=== PATIENT | female | born 1990 | race Hispanic/Latino ===

== ENCOUNTER 2018-04-24 19:08 | Emergency (ER) | payer BC ==
[~2018-04-24] VITALS: Ht 172.7 cm; Wt 72.6 kg
--- OUTSIDE RECORDS SUMMARY | 2018-04-24 19:11 | XMS REPORT | Encounter Summary ---
Author Organization Unknown Address [address] [place] [address] Phone [phone] Reason for Visit Medical Complaint Instructions 1. Viral upper respiratory tract infection rapid flu (A+B) rapid strep group A, throat Discussion Note plenty of fluids, steamed showers, honey w/warm tea, rest. RTC or f/u with PCP if symptoms worsen or do not improve w/symptomatic treatment. watch for signs and symptoms of secondary bacterial infection such as fever returning, shortness of breath, ear pain, or sinus pain and f/u as needed. Patient educational handouts: No information available. Plan of Care Reminders Provider Appointments None recorded. Lab Rapid Flu (A+B) 06/16/2017 [facility] Rapid Strep Group a, Throat 06/16/2017 [facility] Referral None recorded. Procedures None recorded. Surgeries None recorded. Imaging None recorded. Medications Name Start Date esomeprazole magnesium 40 mg capsule,delayed release Plus DHA 27 mg iron-1 mg-312 mg-250 mg oral pack Vitamin D2 50,000 unit capsule Medications Administered None recorded. Vitals Height Weight BMI Blood Pressure 5 ft 8 in 155 lbs 23.6 kg/m2 102/62 mm[Hg] Lab Results Date Name Specimen Result Interpretation Description Value Range Status Address Rapid Strep Group a, Throat Result negative [facility]: [address] [place] [address] Swab Location Left and Right tonsillar pillars [facility]: [address] [place] [address] Rapid Flu (A+B) Influenza a negative [facility]: [address] [place] [address] Influenza B negative [facility]: [address] [place] [address] Allergies Code Code System Name Reaction Severity Status Onset NKDA Problems None recorded. Procedures None recorded. Vaccine List Vaccine Type Tdap 06/15/2013 Social History Smoking Status Never Smoker Past Encounters 06/16/2017 Viral Upper Respiratory Tract Infection Mojgan Gallagher, EDUARDO, S: [address] [place] [address], Ph. History of Present Illness [id number] Reported By: Patient HPI: Location: head/sinuses, throat. Quality: productive cough, sore throat, nasal/sinus congestion, dry cough. Duration: 2days. Severity: moderate. Onset/Timing: sudden. Context: non-smoker, sick contact; no asthma. Modifying factors: OTC medication. Associated Symptoms: no shortness of breath, no wheezing, yellow sputum Review of Systems Basic Reported By: Patient Constitutional: Constitutional: no fever Oeag-Kemo-Wyiuz-Throat: Ears: ; ears itchy. Nose: nose/sinus problems. Mouth/Throat: sore throat Cardiovascular: Cardiovascular: no chest pain, no shortness of breath, no known heart murmur Respiratory: Respiratory: no wheezing, no shortness of breath, cough Physical Exam Adult Basic Reported By: Patient Constitutional: General Appearance: healthy-appearing, well-nourished, well-developed. Level of Distress: NAD. Ambulation: ambulating normally Psychiatric: Mental Status: active and alert Odr-Ghie-Bjcio-Throat: Ears: no lesions on external ear, no outer ear tenderness, EACs clear, TMs clear, middle ear fluid. Nose: no lesions on external nose, nares patent, no septal deviation, nasal passages clear, no sinus tenderness, post nasal drip. Lips, Teeth, and Gums: no mouth or lip ulcers, no bleeding gums, normal dentition. Oropharynx: moist mucous membranes, no erythema, no exudates, tonsils not enlarged Neck: Neck: supple, trachea midline, no masses, FROM. Lymph Nodes: no cervical LAD Lungs: Respiratory effort: no dyspnea, no tachypnea, no use of accessory muscles, no intercostal retractions. Auscultation: breath sounds normal Cardiovascular: Heart Auscultation: RRR, no murmurs
--- OUTSIDE RECORDS SUMMARY | 2018-04-24 19:11 | XMS REPORT | Continuity of Care Document ---
Author Author [facility] Address Unknown Phone Unavailable Problems Problem Status Onset Date Classification Date Reported Comments Source Viral upper respiratory tract infection 06/16/2017 Diagnosis 06/16/2017 [facility] Medications Medication Details Route Status Patient Instructions Ordering Provider Order Date Source Esomeprazole 40 MG Delayed Release Oral Capsule esomeprazole magnesium 40 mg capsule,delayed release Active [facility] Plus DHA 27 mg iron-1 mg-312 mg-250 mg oral pack Plus DHA 27 mg iron-1 mg-312 mg-250 mg oral pack Active [facility] Ergocalciferol 71276 UNT Oral Capsule Vitamin D2 50,000 unit capsule Active [facility] Allergies, Adverse Reactions, Alerts Substance Category Reaction Severity Reaction type Status Date Reported Comments Source Immunizations Immunization Date Given Site Status Last Updated Comments Source Tdap 06/15/2013 completed [facility] Results Order Name Results Value Reference Range Date Interpretation Comments Source RESULT negative 06/16/2017 [facility] SWAB LOCATION Left and Right tonsillar pillars 06/16/2017 [facility] Influenza A negative 06/16/2017 [facility] Influenza B negative 06/16/2017 [facility] Vital Signs Vital Sign Value Date Comments Source Diastolic (mm Hg) 62 06/16/2017 [facility] Height 68 06/16/2017 [facility] Systolic (mm Hg) 102 06/16/2017 [facility] Weight 155 06/16/2017 [facility] Encounters Location Location Details Encounter Type Encounter Number Reason For Visit Attending Provider ADM Date DC Date Status Source [place] - [facility] - [id number] Gallagher, EDUARDO, S: [address] [place] [address], Ph. [id number] Mojgan Gallagher 06/16/2017 [facility] Procedures Procedure Code Date Perfomer Comments Source
[2018-04-24] MEDS ORDERED: NASONEX17 GM NS (19:34)
[2018-04-24] MEDS ORDERED: AUGMENTIN 875-1 EACH PO (19:34)
[2018-04-24] MEDS ORDERED: SUDAFED 12 HOU120 MG PO (19:34)
[2018-04-24] MEDS ORDERED: KETOROLAC TROME10 MG PO (19:34)
== END 2018-04-24 20:04 | disposition home or self-care (01) ==
LOC: FSED 19:08
DX: R05 Cough (principal); J01.00 Acute maxillary sinusitis, unspecified
CPT/HCPCS: 87400; 99282

== ENCOUNTER 2018-06-19 19:18 | Emergency (ER) | payer BC ==
[~2018-06-19] VITALS: Ht 172.7 cm; Wt 72.6 kg
[~2018-06-19 19:18] MED LIST: AUGMENTIN 875-1 EACH PO; KETOROLAC TROME10 MG PO; NASONEX17 GM NS; SUDAFED 12 HOU120 MG PO
== END 2018-06-19 20:30 | disposition home or self-care (01) ==
LOC: FSED 19:18
DX: H92.01 Otalgia, right ear (principal); K12.0 Recurrent oral aphthae; K12.1 Other forms of stomatitis
CPT/HCPCS: 83518; 99282

== ENCOUNTER → 2018-09-11 | Outpatient (CLI) | payer BC ==
[2018-09-11 09:47] LABS: BASOPHILS % 0.6 % (0.0-1.0); EOSINOPHILS % 0.6 % (0.0-6.0); HEMATOCRIT 39.4 % (34.2-44.1); HEMOGLOBIN 13.7 g/dL (12.0-16.0); LYMPHOCYTES # (AUTO) 2.3 (1.0-3.2); LYMPHOCYTES % 35.8 % (18.0-39.1); MEAN CORPUSCULAR HEMOGLOBIN 28.9 pg (28-32); MEAN CORPUSCULAR HGB CONC 34.8 g/dL (31-35); MEAN CORPUSCULAR VOLUME 83.1 fL (81-99); MONOCYTES # (AUTO) 0.4 (0.2-0.8); MONOCYTES % 6.3 % (4.4-11.3); NEUTROPHILS # (AUTO) 3.7 (2.1-6.9); NEUTROPHILS % 56.4 % (38.7-80.0); PLATELET COUNT 270 x10e3/uL (140-360); RED BLOOD COUNT 4.74 x10e6/uL (3.6-5.1); RED CELL DISTRIBUTION WIDTH 13.1 % (11.7-14.4)
== END ==
LOC: LAB 09:17
PROVIDERS: ATTEND Internal Medicine Gastroenterology
DX: Z12.11 Encounter for screening for malignant neoplasm of colon (principal); R14.2 Eructation; R12 Heartburn; E66.3 Overweight; Z71.3 Dietary counseling and surveillance; Z80.0 Family history of malignant neoplasm of digestive organs; Z83.71 Family history of colonic polyps
CPT/HCPCS: 36415; 82784; 83516; 84443; 85025; 86256